=== PATIENT | male | born 1960 | race African-American/Black ===

== ENCOUNTER 2020-10-20 15:25 | Inpatient (IN) | payer OTHER ==
[~2020-10-20] VITALS: Ht 175.3 cm; Wt 100.7 kg
[2020-10-20 20:00] VITALS: BP 112/73
[2020-10-20] MEDS ORDERED: ONDANSETRON HCL 4 MG TABLET PO PRN (20:00)
[2020-10-20] MEDS ORDERED: ACETAMINOPHEN 325 MG TABLET PO PRN (20:00)
[2020-10-20] MEDS ORDERED: BISACODYL 10 MG RECTAL RECTAL SUPPOSITORY PR PRN (20:00)
[2020-10-20] MEDS: SENNA 187 MG TABLET PO SCH (20:56)
[2020-10-20] MEDS: DOCUSATE SODIUM 250 MG CAPSULE PO SCH (20:56)
[2020-10-20] MEDS: OxyCODONE HCL 10 MG IR TABLET PO PRN (20:56)
[2020-10-20] MEDS: PREGABALIN 75 MG CAPSULE PO SCH (20:57)
[2020-10-21 03:00] VITALS: BP 120/77
[2020-10-21] MEDS: OxyCODONE HCL 10 MG IR TABLET PO PRN ×5 (04:07→20:03)
[2020-10-21] MEDS: ACETAMINOPHEN 325 MG TABLET PO SCH ×3 (05:52→21:04)
[2020-10-21 06:50] VITALS: BP 122/74
[2020-10-21 07:49] LABS: EOSINOPHILS % (AUTO) 3.8 % (1.0-6.0); HEMATOCRIT 32.6 % (41-53); HEMOGLOBIN 10.7 g/dL (13.5-17.5); LYMPHOCYTES # (AUTO) 1.7 K/uL (1.0-4.8); LYMPHOCYTES % (AUTO) 24.1 % (22.0-44.0); MEAN CORPUSCULAR HEMOGLOBIN 27.9 pg (26.0-34.0); MEAN CORPUSCULAR HGB CONC 32.9 G/dL (31.0-37.0); MEAN CORPUSCULAR VOLUME 85 fL (80-100); MONOCYTES # (AUTO) 0.6 K/uL (0.1-1.0); MONOCYTES % (AUTO) 8.3 % (2.0-9.0); NEUTROPHILS # (AUTO) 4.5 K/uL (1.8-7.7); NEUTROPHILS % (AUTO) 62.8 % (40.0-70.0); PLATELET COUNT (AUTO) 401 K/uL (150-450); RED BLOOD CELL COUNT(AUTO) 3.85 MIL/uL (4.50-5.90); RED CELL DISTRIBUTION WIDTH 14.2 % (11.5-14.5)
[2020-10-21 08:04] LABS: ALANINE AMINOTRANSFERASE 53 U/L (12-78); ALBUMIN 2.9 g/dL (3.4-5.0); ALKALINE PHOSPHATASE 87 U/L (46-116); ANION GAP 7 mmol/L (8-16); ASPARTATE AMINOTRANSFERASE 39 U/L (15-37); BILIRUBIN,TOTAL 0.4 mg/dL (0.1-1.0); CALCIUM, TOTAL 9.3 mg/dL (8.8-10.5); CARBON DIOXIDE 30 mmol/L (22-29); CHLORIDE 101 mmol/L (98-107); CREATININE 0.85 mg/dL (0.60-1.30); GLOMERULAR FILTR. RATE CALC > 60 mL/min (>60); GLUCOSE,RANDOM 103 mg/dL (70-110); POTASSIUM 4.4 mmol/L (3.5-5.1); SODIUM SERUM 138 mmol/L (136-145); TOTAL PROTEIN, SERUM 7.3 g/dL (6.4-8.2); UREA NITROGEN, BLOOD 14 mg/dL (7-18)
[2020-10-21] MEDS: DOCUSATE SODIUM 250 MG CAPSULE PO SCH ×2 (08:43→20:02)
[2020-10-21] MEDS: ASPIRIN 325 MG DR TABLET PO SCH (08:43)
[2020-10-21] MEDS: PREGABALIN 75 MG CAPSULE PO SCH ×2 (08:43→20:03)
[2020-10-21] MEDS: CELECOXIB 200 MG CAPSULE PO SCH (08:43)
[2020-10-21] MEDS: CYCLOBENZAPRINE HCL 10 MG TABLET PO PRN (12:07)
[2020-10-21] MEDS: MAGNESIUM HYDROXIDE SUSPENSION 30 ML UDCUP PO PRN ×2 (16:03→20:36)
[2020-10-21 16:18] VITALS: BP 123/67
[2020-10-21] MEDS: SENNA 187 MG TABLET PO SCH (20:03)
[2020-10-22 00:10] VITALS: BP 122/72
[2020-10-22] MEDS: OxyCODONE HCL 10 MG IR TABLET PO PRN ×5 (00:10→16:21)
[2020-10-22] MEDS: ACETAMINOPHEN 325 MG TABLET PO SCH ×3 (06:08→21:14)
[2020-10-22 07:24] VITALS: BP 114/66
[2020-10-22] MEDS: DOCUSATE SODIUM 250 MG CAPSULE PO SCH ×2 (08:19→20:20)
[2020-10-22] MEDS: CYCLOBENZAPRINE HCL 10 MG TABLET PO PRN (08:19)
[2020-10-22] MEDS: PREGABALIN 75 MG CAPSULE PO SCH ×2 (08:19→20:20)
[2020-10-22] MEDS: CELECOXIB 200 MG CAPSULE PO SCH (08:20)
[2020-10-22] MEDS: ASPIRIN 325 MG DR TABLET PO SCH (08:21)
[2020-10-22 14:50] VITALS: BP 120/69
[2020-10-22] MEDS: OxyCODONE HCL 5 MG IR TABLET PO PRN (20:20)
[2020-10-22] MEDS: SENNA 187 MG TABLET PO SCH (20:20)
[2020-10-23 00:18] VITALS: BP 129/62
[2020-10-23] MEDS: OxyCODONE HCL 10 MG IR TABLET PO PRN ×4 (00:18→16:05)
[2020-10-23] MEDS: OxyCODONE HCL 5 MG IR TABLET PO PRN ×2 (04:17→20:05)
[2020-10-23] MEDS: ACETAMINOPHEN 325 MG TABLET PO SCH ×3 (05:35→21:04)
[2020-10-23] MEDS: DOCUSATE SODIUM 250 MG CAPSULE PO SCH ×2 (07:58→20:05)
[2020-10-23] MEDS: CELECOXIB 200 MG CAPSULE PO SCH (07:58)
[2020-10-23] MEDS: PREGABALIN 75 MG CAPSULE PO SCH ×2 (07:59→20:05)
[2020-10-23 08:00] VITALS: BP 120/65
[2020-10-23] MEDS: ASPIRIN 325 MG DR TABLET PO SCH (08:12)
[2020-10-23 15:45] VITALS: BP 111/65
[2020-10-23] MEDS: SENNA 187 MG TABLET PO SCH (20:05)
[2020-10-24 00:10] VITALS: BP 119/76
[2020-10-24] MEDS: OxyCODONE HCL 5 MG IR TABLET PO PRN ×5 (00:10→23:36)
[2020-10-24] MEDS: ACETAMINOPHEN 325 MG TABLET PO SCH ×3 (05:55→21:17)
[2020-10-24 07:01] LABS: BASOPHILS % (AUTO) 0.8 % (0.0-2.0); EOSINOPHILS % (AUTO) 3.8 % (1.0-6.0); HEMATOCRIT 27.7 % (41-53); HEMOGLOBIN 9.2 g/dL (13.5-17.5); LYMPHOCYTES # (AUTO) 1.6 K/uL (1.0-4.8); MEAN CORPUSCULAR HEMOGLOBIN 28.2 pg (26.0-34.0); MEAN CORPUSCULAR HGB CONC 33.3 G/dL (31.0-37.0); MEAN CORPUSCULAR VOLUME 85 fL (80-100); MONOCYTES # (AUTO) 0.7 K/uL (0.1-1.0); MONOCYTES % (AUTO) 10.4 % (2.0-9.0); NEUTROPHILS # (AUTO) 3.9 K/uL (1.8-7.7); PLATELET COUNT (AUTO) 407 K/uL (150-450); RED BLOOD CELL COUNT(AUTO) 3.27 MIL/uL (4.50-5.90); RED CELL DISTRIBUTION WIDTH 13.9 % (11.5-14.5)
[2020-10-24 07:15] LABS: ANION GAP 6 mmol/L (8-16); CALCIUM, TOTAL 8.8 mg/dL (8.8-10.5); CARBON DIOXIDE 27 mmol/L (22-29); CHLORIDE 103 mmol/L (98-107); CREATININE 0.98 mg/dL (0.60-1.30); GLOMERULAR FILTR. RATE CALC > 60 mL/min (>60); GLUCOSE,RANDOM 102 mg/dL (70-110); POTASSIUM 4.1 mmol/L (3.5-5.1); SODIUM SERUM 136 mmol/L (136-145); UREA NITROGEN, BLOOD 14 mg/dL (7-18)
[2020-10-24 08:00] VITALS: BP 111/77
[2020-10-24] MEDS: PREGABALIN 75 MG CAPSULE PO SCH ×2 (08:18→21:17)
[2020-10-24] MEDS: CELECOXIB 200 MG CAPSULE PO SCH (08:18)
[2020-10-24] MEDS: ASPIRIN 325 MG DR TABLET PO SCH (08:18)
[2020-10-24] MEDS: DOCUSATE SODIUM 250 MG CAPSULE PO SCH ×2 (08:18→21:17)
[2020-10-24] MEDS: OxyCODONE HCL 10 MG IR TABLET PO PRN (08:19)
[2020-10-24 16:00] VITALS: BP 119/72
[2020-10-24] MEDS: SENNA 187 MG TABLET PO SCH (21:17)
[2020-10-24 23:36] VITALS: BP 127/84
[2020-10-25] MEDS: OxyCODONE HCL 5 MG IR TABLET PO PRN ×4 (03:45→21:34)
[2020-10-25] MEDS: ACETAMINOPHEN 325 MG TABLET PO SCH ×3 (05:46→21:04)
[2020-10-25 08:20] VITALS: BP 130/77
[2020-10-25] MEDS: DOCUSATE SODIUM 250 MG CAPSULE PO SCH ×2 (08:23→20:26)
[2020-10-25] MEDS: PREGABALIN 75 MG CAPSULE PO SCH ×2 (08:23→20:27)
[2020-10-25] MEDS: CELECOXIB 200 MG CAPSULE PO SCH (08:23)
[2020-10-25] MEDS: ASPIRIN 325 MG DR TABLET PO SCH (08:23)
[2020-10-25 16:00] VITALS: BP 100/63
[2020-10-25] MEDS: SENNA 187 MG TABLET PO SCH (20:27)
[2020-10-26] VITALS: BP 116/72
[2020-10-26] MEDS: OxyCODONE HCL 5 MG IR TABLET PO PRN ×3 (01:37→23:31)
[2020-10-26] MEDS: ACETAMINOPHEN 325 MG TABLET PO SCH ×3 (05:47→20:37)
[2020-10-26 07:31] LABS: BASOPHILS % (AUTO) 0.9 % (0.0-2.0); EOSINOPHILS % (AUTO) 3.1 % (1.0-6.0); HEMATOCRIT 29.9 % (41-53); HEMOGLOBIN 9.9 g/dL (13.5-17.5); LYMPHOCYTES # (AUTO) 1.8 K/uL (1.0-4.8); LYMPHOCYTES % (AUTO) 24.5 % (22.0-44.0); MEAN CORPUSCULAR HEMOGLOBIN 27.9 pg (26.0-34.0); MEAN CORPUSCULAR VOLUME 85 fL (80-100); MONOCYTES # (AUTO) 0.6 K/uL (0.1-1.0); MONOCYTES % (AUTO) 8.3 % (2.0-9.0); NEUTROPHILS # (AUTO) 4.7 K/uL (1.8-7.7); NEUTROPHILS % (AUTO) 63.2 % (40.0-70.0); PLATELET COUNT (AUTO) 513 K/uL (150-450); RED BLOOD CELL COUNT(AUTO) 3.54 MIL/uL (4.50-5.90); RED CELL DISTRIBUTION WIDTH 14.3 % (11.5-14.5)
[2020-10-26 07:51] LABS: ANION GAP 8 mmol/L (8-16); CALCIUM, TOTAL 9.3 mg/dL (8.8-10.5); CARBON DIOXIDE 29 mmol/L (22-29); CHLORIDE 104 mmol/L (98-107); CREATININE 0.88 mg/dL (0.60-1.30); GLOMERULAR FILTR. RATE CALC > 60 mL/min (>60); GLUCOSE,RANDOM 94 mg/dL (70-110); POTASSIUM 4.4 mmol/L (3.5-5.1); SODIUM SERUM 141 mmol/L (136-145); UREA NITROGEN, BLOOD 9 mg/dL (7-18)
[2020-10-26 08:05] VITALS: BP 121/77
[2020-10-26] MEDS: CELECOXIB 200 MG CAPSULE PO SCH (08:07)
[2020-10-26] MEDS: ASPIRIN 325 MG DR TABLET PO SCH (08:08)
[2020-10-26] MEDS: PREGABALIN 75 MG CAPSULE PO SCH ×2 (08:08→20:37)
[2020-10-26] MEDS: DOCUSATE SODIUM 250 MG CAPSULE PO SCH ×2 (08:08→20:37)
[2020-10-26] MEDS: OxyCODONE HCL 10 MG IR TABLET PO PRN ×2 (08:09→12:24)
[2020-10-26 16:29] VITALS: BP 130/88
[2020-10-26] MEDS: PANTOPRAZOLE SODIUM 40 MG DR TABLET PO SCH (20:37)
[2020-10-26] MEDS: SENNA 187 MG TABLET PO SCH (20:37)
[2020-10-26 23:13] VITALS: BP 135/90
[2020-10-27] MEDS: ACETAMINOPHEN 325 MG TABLET PO SCH ×3 (06:05→21:02)
[2020-10-27] MEDS: PREGABALIN 75 MG CAPSULE PO SCH ×2 (08:35→21:02)
[2020-10-27 08:36] VITALS: BP 125/74
[2020-10-27] MEDS: OxyCODONE HCL 10 MG IR TABLET PO PRN ×2 (08:36→12:42)
[2020-10-27] MEDS: DOCUSATE SODIUM 250 MG CAPSULE PO SCH ×2 (08:36→21:02)
[2020-10-27] MEDS: CELECOXIB 200 MG CAPSULE PO SCH (08:36)
[2020-10-27] MEDS: ASPIRIN 325 MG DR TABLET PO SCH (08:36)
[2020-10-27 16:42] VITALS: BP 128/76
[2020-10-27] MEDS: OxyCODONE HCL 5 MG IR TABLET PO PRN (17:38)
[2020-10-27] MEDS: SENNA 187 MG TABLET PO SCH (21:01)
[2020-10-27] MEDS: PANTOPRAZOLE SODIUM 40 MG DR TABLET PO SCH (21:02)
[2020-10-28 03:55] VITALS: BP 124/70
[2020-10-28] MEDS: ACETAMINOPHEN 325 MG TABLET PO SCH ×3 (06:00→20:43)
[2020-10-28 07:18] LABS: BASOPHILS % (AUTO) 1.1 % (0.0-2.0); HEMATOCRIT 30.1 % (41-53); LYMPHOCYTES # (AUTO) 1.4 K/uL (1.0-4.8); LYMPHOCYTES % (AUTO) 22.1 % (22.0-44.0); MEAN CORPUSCULAR HEMOGLOBIN 28.2 pg (26.0-34.0); MEAN CORPUSCULAR HGB CONC 33.4 G/dL (31.0-37.0); MEAN CORPUSCULAR VOLUME 85 fL (80-100); MONOCYTES # (AUTO) 0.4 K/uL (0.1-1.0); MONOCYTES % (AUTO) 7.3 % (2.0-9.0); NEUTROPHILS # (AUTO) 4.1 K/uL (1.8-7.7); NEUTROPHILS % (AUTO) 66.5 % (40.0-70.0); PLATELET COUNT (AUTO) 473 K/uL (150-450); RED BLOOD CELL COUNT(AUTO) 3.56 MIL/uL (4.50-5.90); RED CELL DISTRIBUTION WIDTH 14.4 % (11.5-14.5)
[2020-10-28 08:15] VITALS: BP 126/71
[2020-10-28] MEDS: ASPIRIN 325 MG DR TABLET PO SCH (08:19)
[2020-10-28] MEDS: OxyCODONE HCL 10 MG IR TABLET PO PRN ×2 (08:19→12:42)
[2020-10-28] MEDS: CELECOXIB 200 MG CAPSULE PO SCH (08:19)
[2020-10-28] MEDS: PREGABALIN 75 MG CAPSULE PO SCH ×2 (08:19→20:43)
[2020-10-28] MEDS: DOCUSATE SODIUM 250 MG CAPSULE PO SCH ×2 (08:19→20:42)
[2020-10-28 16:00] VITALS: BP 126/72
[2020-10-28] MEDS: PANTOPRAZOLE SODIUM 40 MG DR TABLET PO SCH (20:43)
[2020-10-28] MEDS: SENNA 187 MG TABLET PO SCH (20:43)
[2020-10-29 00:22] VITALS: BP 132/96
[2020-10-29] MEDS: OxyCODONE HCL 5 MG IR TABLET PO PRN ×2 (00:22→04:14)
[2020-10-29] MEDS: ACETAMINOPHEN 325 MG TABLET PO SCH ×3 (06:23→21:08)
[2020-10-29 08:00] VITALS: BP 131/73
[2020-10-29] MEDS: CELECOXIB 200 MG CAPSULE PO SCH (08:00)
[2020-10-29] MEDS: DOCUSATE SODIUM 250 MG CAPSULE PO SCH ×2 (08:01→20:39)
[2020-10-29] MEDS: PREGABALIN 75 MG CAPSULE PO SCH ×2 (08:01→20:39)
[2020-10-29] MEDS: OxyCODONE HCL 10 MG IR TABLET PO PRN ×2 (08:01→12:27)
[2020-10-29] MEDS: ASPIRIN 325 MG DR TABLET PO SCH (08:01)
[2020-10-29 16:00] VITALS: BP 138/74
[2020-10-29] MEDS: SENNA 187 MG TABLET PO SCH (20:39)
[2020-10-29] MEDS: PANTOPRAZOLE SODIUM 40 MG DR TABLET PO SCH (20:39)
[2020-10-30] VITALS: BP 139/84
[2020-10-30] MEDS: ACETAMINOPHEN 325 MG TABLET PO SCH ×3 (05:38→21:37)
[2020-10-30 08:00] VITALS: BP 125/73
[2020-10-30] MEDS: ASPIRIN 325 MG DR TABLET PO SCH (08:02)
[2020-10-30] MEDS: DOCUSATE SODIUM 250 MG CAPSULE PO SCH ×2 (08:02→21:35)
[2020-10-30] MEDS: CELECOXIB 200 MG CAPSULE PO SCH (08:02)
[2020-10-30] MEDS: PREGABALIN 75 MG CAPSULE PO SCH ×2 (08:02→21:35)
[2020-10-30] MEDS: OxyCODONE HCL 10 MG IR TABLET PO PRN ×2 (08:02→12:12)
[2020-10-30 16:00] VITALS: BP 104/61
[2020-10-30] MEDS: PANTOPRAZOLE SODIUM 40 MG DR TABLET PO SCH (21:36)
[2020-10-30] MEDS: SENNA 187 MG TABLET PO SCH (21:36)
[2020-10-31 00:03] VITALS: BP 126/79
[2020-10-31] MEDS: ACETAMINOPHEN 325 MG TABLET PO SCH ×3 (06:00→21:02)
[2020-10-31 06:40] VITALS: BP 111/74
[2020-10-31] MEDS: OxyCODONE HCL 10 MG IR TABLET PO PRN ×2 (06:41→11:05)
[2020-10-31] MEDS: DOCUSATE SODIUM 250 MG CAPSULE PO SCH ×2 (08:01→21:00)
[2020-10-31] MEDS: CELECOXIB 200 MG CAPSULE PO SCH (08:01)
[2020-10-31] MEDS: PREGABALIN 75 MG CAPSULE PO SCH ×2 (08:02→21:00)
[2020-10-31] MEDS: ASPIRIN 325 MG DR TABLET PO SCH (08:02)
[2020-10-31 16:17] VITALS: BP 106/68
[2020-10-31] MEDS: SENNA 187 MG TABLET PO SCH (21:00)
[2020-10-31] MEDS: PANTOPRAZOLE SODIUM 40 MG DR TABLET PO SCH (21:00)
[2020-10-31 23:05] VITALS: BP 138/72
[2020-11-01] MEDS: ACETAMINOPHEN 325 MG TABLET PO SCH ×3 (05:06→21:11)
[2020-11-01 07:26] VITALS: BP 122/88
[2020-11-01] MEDS: OxyCODONE HCL 10 MG IR TABLET PO PRN (07:52)
[2020-11-01] MEDS: CELECOXIB 200 MG CAPSULE PO SCH (07:53)
[2020-11-01] MEDS: DOCUSATE SODIUM 250 MG CAPSULE PO SCH ×2 (07:53→21:08)
[2020-11-01] MEDS: ASPIRIN 325 MG DR TABLET PO SCH (07:53)
[2020-11-01] MEDS: PREGABALIN 75 MG CAPSULE PO SCH ×2 (07:53→21:08)
[2020-11-01 16:24] VITALS: BP 117/68
[2020-11-01] MEDS: SENNA 187 MG TABLET PO SCH (21:00)
[2020-11-01] MEDS: PANTOPRAZOLE SODIUM 40 MG DR TABLET PO SCH (21:08)
[2020-11-02] VITALS: BP 120/69
[2020-11-02] MEDS: ACETAMINOPHEN 325 MG TABLET PO SCH ×3 (06:07→21:10)
[2020-11-02 08:00] VITALS: BP 117/66
[2020-11-02] MEDS: CELECOXIB 200 MG CAPSULE PO SCH (08:19)
[2020-11-02] MEDS: PREGABALIN 75 MG CAPSULE PO SCH ×2 (08:19→20:13)
[2020-11-02] MEDS: DOCUSATE SODIUM 250 MG CAPSULE PO SCH ×2 (08:19→20:12)
[2020-11-02] MEDS: ASPIRIN 325 MG DR TABLET PO SCH (08:30)
[2020-11-02] MEDS: OxyCODONE HCL 10 MG IR TABLET PO PRN ×2 (09:01→13:19)
[2020-11-02 16:00] VITALS: BP 112/78
[2020-11-02] MEDS: PANTOPRAZOLE SODIUM 40 MG DR TABLET PO SCH (20:12)
[2020-11-02] MEDS: SENNA 187 MG TABLET PO SCH (20:12)
[2020-11-02] MEDS ORDERED: ASPI-989 PO (23:42)
[2020-11-02] MEDS ORDERED: CELE200 PO (23:42)
[2020-11-02] MEDS ORDERED: PREG75 PO (23:42)
[2020-11-02] MEDS ORDERED: PANT-31 PO (23:42)
[2020-11-02] MEDS ORDERED: DOCU-350 PO (23:42)
[2020-11-03] VITALS: BP 115/69
[2020-11-03] MEDS: ACETAMINOPHEN 325 MG TABLET PO SCH ×3 (05:37→21:13)
[2020-11-03 08:00] VITALS: BP 121/76
[2020-11-03] MEDS: DOCUSATE SODIUM 250 MG CAPSULE PO SCH ×2 (08:07→20:54)
[2020-11-03] MEDS: CELECOXIB 200 MG CAPSULE PO SCH (08:07)
[2020-11-03] MEDS: OxyCODONE HCL 10 MG IR TABLET PO PRN (08:07)
[2020-11-03] MEDS: ASPIRIN 325 MG DR TABLET PO SCH (08:07)
[2020-11-03] MEDS: PREGABALIN 75 MG CAPSULE PO SCH ×2 (08:07→20:55)
[2020-11-03] MEDS: OxyCODONE HCL 5 MG IR TABLET PO PRN (13:10)
[2020-11-03 18:05] VITALS: BP 109/67
[2020-11-03] MEDS: SENNA 187 MG TABLET PO SCH (20:55)
[2020-11-03] MEDS: PANTOPRAZOLE SODIUM 40 MG DR TABLET PO SCH (20:55)
[2020-11-04 00:43] VITALS: BP 123/70
[2020-11-04] MEDS ORDERED: ACET-2247 PO (01:37)
[2020-11-04] MEDS ORDERED: OXYC10TA92 PO (01:41)
[2020-11-04] MEDS ORDERED: OXYC5 PO (01:41)
[2020-11-04] MEDS: ACETAMINOPHEN 325 MG TABLET PO SCH (06:22)
[2020-11-04 08:00] VITALS: BP 106/73
[2020-11-04] MEDS: CELECOXIB 200 MG CAPSULE PO SCH (08:22)
[2020-11-04] MEDS: PREGABALIN 75 MG CAPSULE PO SCH (08:22)
[2020-11-04] MEDS: ASPIRIN 325 MG DR TABLET PO SCH (08:22)
[2020-11-04] MEDS: DOCUSATE SODIUM 250 MG CAPSULE PO SCH (08:22)
[2020-11-04 08:47] VITALS: BP 110/74
== END 2020-11-04 10:40 | disposition home or self-care (01) | DRG 554 ==
LOC: 2WR 19:20
PROVIDERS: ADMIT Physical Medicine & Rehabilitation; ATTEND Physical Medicine & Rehabilitation
DX: M19.90 Unspecified osteoarthritis, unspecified site (principal); E46 Unspecified protein-calorie malnutrition; Z96.643 Presence of artificial hip joint, bilateral; D64.9 Anemia, unspecified; K59.03 Drug induced constipation; T40.2X5A Adverse effect of other opioids, initial encounter; Z88.1 Allergy status to other antibiotic agents; Z82.49 Family history of ischemic heart disease and other diseases of the circulatory system; Z68.32 Body mass index [BMI] 32.0-32.9, adult; R26.9 Unspecified abnormalities of gait and mobility; Z80.42 Family history of malignant neoplasm of prostate
CPT/HCPCS: 82271; 87081; 93970; 93971; 97110; 97116; 97150; 97161; 97165; 97530; 97535; 99366